=== PATIENT | male | born 1970 | race African-American/Black ===

== ENCOUNTER 2023-05-05 17:40 | Inpatient (IN) | payer BC, SELFPAY ==
[2023-05-05] MEDS ORDERED: MAGNESIUM SULFATE 1 gm IVPB 1 GM/100 ML BAG IV ONE (18:00)
[2023-05-05] MEDS ORDERED: NA CHLORIDE 0.9% 1,000 ML ONE (18:00)
[2023-05-05] MEDS ORDERED: Ringers Lactate 1,000 ML IV ONE (18:01)
[2023-05-05 18:03] LABS: Absolute Lymphocytes (CBC) 1.9 K/uL (0.7-4.9); Lymphocytes % 18.9 % (15.3-44.8); MCV 88.6 fL (80-100); MPV 8.6 fL (7.6-11.3); RBC Red Blood Cell Count 5.42 M/uL (4.33-5.43)
[2023-05-05 18:16] LABS: Potassium 3.4 mEq/L (3.5-5.1)
--- NOTE | 2023-05-05 18:52 | ER ---
Nurse's Notes [facility] Name: Gina Lockhart Age: 52 yrs Sex: Male : 1970 Arrival Date: 05/05/2023 Time: 17:40 Bed 20 Private MD: Diagnosis: Acute kidney failure, unspecified;Dehydration;Cramp and spasm Presentation: 05/05 17:44 Chief complaint: Patient states: "I was out working in the heat and my body started mb9 locking up and having spasms. This happened before and they gave me fluids/vitamin shot and got me better. I get really SOB when the spasms occur". Coronavirus screen: Vaccine status: Patient reports receiving the 2nd dose of the covid vaccine. Ebola Screen: No symptoms or risks identified at this time. Initial Sepsis Screen: Does the patient meet any 2 criteria? No. Patient's initial sepsis screen is negative. Does the patient have a suspected source of infection? No. Patient's initial sepsis screen is negative. Risk Assessment: Do you want to hurt yourself or someone else? Patient reports no desire to harm self or others. Onset of symptoms was May 05, 2023. 17:44 Method Of Arrival: Wheelchair mb9 17:44 Acuity: JESSI 3 mb9 Triage Assessment: 17:46 General: Appears uncomfortable, Behavior is cooperative. Pain: Denies pain. Neuro: mb9 Gallegos Agitation-Sedation Scale (RASS): 0 - Alert and Calm Level of Consciousness is awake, alert, obeys commands, Oriented to person, place, time, situation, Appropriate for age. Cardiovascular: Heart tones S1 S2 present. Respiratory: Reports shortness of breath Airway is patent Respiratory effort is even, unlabored, Respiratory pattern is regular, symmetrical. Respiratory: Breath sounds are clear bilaterally. GI: Abdomen is round non-distended, Bowel sounds present X 4 quads. Abd is soft and non tender X 4 quads. Derm: Skin is intact, Skin is clammy, Skin is normal, Skin temperature is cool. Musculoskeletal: Range of motion: intact in all extremities, bilateral upper extremities locking up and having spasms. Historical: - Allergies: 17:45 No Known Allergies; mb9 - Home Meds: 17:45 None [Active]; mb9 - PMHx: 17:45 Acute kidney failure; mb9 - PSHx: 17:45 None; mb9 - Immunization history:: Adult Immunizations up to date. - Social history:: Smoking status: Patient denies any tobacco usage or history of. - Family history:: not pertinent. - Hospitalizations: : No recent hospitalization is reported. Screenin:[address] [facility] ED Fall Risk Assessment (Adult) History of falling in the last 3 months, mb9 including since admission No falls in past 3 months (0 pts) Confusion or Disorientation No (0 pts) Intoxicated or Sedated No (0 pts) Impaired Gait No (0 pts) Mobility Assist Device Used No (0 pt) Altered Elimination No (0 pt) Score/Fall Risk Level 0 - 2 = Low Risk Oriented to surroundings, Maintained a safe environment, Educated pt \\T\\ family on fall prevention, incl call for assistance when getting out of bed. Abuse screen: Denies threats or abuse. Nutritional screening: No deficits noted. Tuberculosis screening: No symptoms or risk factors identified. Assessment: 18:50 Reassessment: No changes from previously documented assessment. Patient and/or family mb9 updated on plan of care and expected duration. Pain level reassessed. Patient is alert, oriented x 3, equal unlabored respirations, skin warm/dry/pink. 20:00 Reassessment: Patient and/or family updated on plan of care and expected duration. Pain mb9 level reassessed. Patient is alert, oriented x 3, equal unlabored respirations, skin warm/dry/pink. Patient states feeling better. Patient states symptoms have improved. 21:00 Reassessment: No changes from previously documented assessment. Patient and/or family mb9 updated on plan of care and expected duration. Pain level reassessed. Patient is alert, oriented x 3, equal unlabored respirations, skin warm/dry/pink. 22:00 Reassessment: No changes from previously documented assessment. Patient and/or family mb9 updated on plan of care and expected duration. Pain level reassessed. Patient is alert, oriented x 3, equal unlabored respirations, skin warm/dry/pink. 22:06 Reassessment: attempted to call report to admitting nurse. mb9 Vital Signs: 17:44 BP 118 / 77; Pulse 84; Resp 18; Temp 98.2; Pulse Ox 100% on R/A; Weight 102.06 kg; mb9 Height 5 ft. 11 in. ; Pain 0/10; 18:50 BP 118 / 77; Pulse 87; Resp 18; Pulse Ox 100% on R/A; mb9 20:45 BP 112 / 75; Pulse 70; Resp 18; Pulse Ox 100% on R/A; mb9 22:07 BP 115 / 70; Pulse 73; Resp 16; Pulse Ox 99% on R/A; Pain 0/10; mb9 17:44 Body Mass Index 31.38 (102.06 kg, 180.34 cm) mb9 17:44 Pain Scale: Adult mb9 22:07 Pain Scale: Adult mb9 ED Course: 17:40 Patient arrived in ED. rn 17:41 Gavin Ansari MD is Attending Physician. rn 17:44 Ina Johnson RN is Primary Nurse. mb9 17:44 Arm band placed on. mb9 17:45 Triage completed. mb9 17:47 Placed in gown. Bed in low position. Call light in reach. Side rails up X 1. Client mb9 placed on continuous cardiac and pulse oximetry monitoring. NIBP monitoring applied. surveillance monitor on. 17:57 CK Sent. mb9 17:57 Basic Metabolic Panel Sent. mb9 17:57 CBC with Diff Sent. mb9 18:10 EKG done, by ED staff. aw1 18:51 Lg Isbell MD is Hospitalizing Provider. rn 18:51 No provider procedures requiring assistance completed. Patient admitted, IV remains in mb9 place. Administered Medications: 17:57 Drug: NS 0.9% IV 1000 ml Route: IV; Rate: 1000 ml; Site: right antecubital; mb9 22:10 Follow up: Response: No adverse reaction; IV Status: Completed infusion mb9 17:57 Drug: Magnesium Sulfate IVPB 1 grams Route: IVPB; Infused Over: 1 hrs; Site: right mb9 antecubital; 20:30 Follow up: Response: No adverse reaction; IV Status: Completed infusion mb9 17:57 Drug: Lactated Ringers Solution IV 1000 ml Route: IV; Rate: 250 ml/hr; Site: right mb9 antecubital; 22:10 Follow up: Response: No adverse reaction; IV Status: Completed infusion mb9 Medication: 18:51 VIS not applicable for this client. mb9 Outcome: 18:51 Decision to Hospitalize by Provider. rn 22:22 Admitted to Med/surg accompanied by tech, via wheelchair, room 220, with chart, Report mb9 called to DARYN Rothman 22:22 Condition: stable 22:45 Patient left the ED. mb9 Signatures: Gavin Ansari MD MD rn Breneman, Mary Beth, RN RN [email or web address] Trudy Wyatt
--- NOTE | 2023-05-05 18:52 | EDPHYS ---
Physician Documentation [facility] Name: Gina Lockhart Age: 52 yrs Sex: Male : 1970 Arrival Date: 05/05/2023 Time: 17:40 Bed 20 Private MD: ED Physician Gavin Ansari HPI: 05/05 17:44 This 52 yrs old Male presents to ER via Unassigned with complaints of cramps, muscle rn spasm. 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 REports has happened once before, "given electrolyte shot and got better last time". NO vomiting. Reports thinks was drinking enough water. . Onset: The symptoms/episode began/occurred just prior to arrival. Severity of symptoms: At their worst the symptoms were moderate in the emergency department the symptoms are unchanged. The patient has experienced a previous episode. The patient has not recently seen a physician. Historical: - Allergies: 17:45 No Known Allergies; mb9 - Home Meds: 17:45 None [Active]; mb9 - PMHx: 17:45 Acute kidney failure; mb9 - PSHx: 17:45 None; mb9 - Immunization history:: Adult Immunizations up to date. - Social history:: Smoking status: Patient denies any tobacco usage or history of. - Family history:: not pertinent. - Hospitalizations: : No recent hospitalization is reported. ROS: 17:44 Constitutional: Negative for fever, chills, and weight loss, Cardiovascular: Negative rn for chest pain, palpitations, and edema, Respiratory: Negative for shortness of breath, cough, wheezing, and pleuritic chest pain, Abdomen/GI: Negative for abdominal pain, nausea, vomiting, diarrhea, and constipation, Back: Negative for injury and pain, MS/Extremity: Negative for injury and deformity, Skin: Negative for injury, rash, and discoloration, Neuro: Negative for headache, weakness, numbness, tingling, and seizure. Exam: 17:44 Constitutional: This is a well developed, well nourished patient who is awake, alert, rn and in no acute distress. Head/Face: Normocephalic, atraumatic. ENT: dry MM Cardiovascular: Regular rate and rhythm. No pulse deficits. Respiratory: No increased work of breathing, no retractions or nasal flaring. Abdomen/GI: Soft, non-tender Skin: Warm, dry MS/ Extremity: Pulses equal, no cyanosis Neuro: Awake and alert, GCS 15, oriented to person, place, time, and situation. Cranial nerves II-XII grossly intact. Motor strength 5/5 in all extremities. Sensory grossly intact. 18:55 ECG was reviewed by the Attending Physician. rn Vital Signs: 17:44 BP 118 / 77; Pulse 84; Resp 18; Temp 98.2; Pulse Ox 100% on R/A; Weight 102.06 kg; mb9 Height 5 ft. 11 in. ; Pain 0/10; 18:50 BP 118 / 77; Pulse 87; Resp 18; Pulse Ox 100% on R/A; mb9 20:45 BP 112 / 75; Pulse 70; Resp 18; Pulse Ox 100% on R/A; mb9 22:07 BP 115 / 70; Pulse 73; Resp 16; Pulse Ox 99% on R/A; Pain 0/10; mb9 17:44 Body Mass Index 31.38 (102.06 kg, 180.34 cm) mb9 17:44 Pain Scale: Adult mb9 22:07 Pain Scale: Adult mb9 MDM: 17:41 Patient medically screened. rn 18:50 Differential Diagnosis dehydration, rhabdomyolysis, acute kidney injury, electrolyte rn disturbance. Data reviewed: vital signs, nurses notes, lab test result(s), and as a result, I will admit patient. Consideration of Admission/Observation Patient was admitted/placed on observation. Escalation of care including admission/observation considered. Counseling: I had a detailed discussion with the patient and/or guardian regarding: the historical points, exam findings, and any diagnostic results supporting the discharge/admit diagnosis, lab results, the need for further work-up and treatment in the hospital. Response to treatment: the patient's symptoms have mildly improved after treatment, and as a result, I will admit patient. 05/05 17:41 Order name: CBC with Diff; Complete Time: 18:20 rn 05/05 17:41 Order name: Basic Metabolic Panel; Complete Time: 18:20 rn 05/05 17:41 Order name: CK; Complete Time: 18:20 rn 05/05 20:24 Order name: Urinalysis w/ reflexes EDMS 05/05 17:41 Order name: EKG; Complete Time: 17:42 rn 05/05 20:24 Order name: Regular EDMS 05/05 17:41 Order name: IV Start; Complete Time: 17:47 rn 05/05 17:41 Order name: EKG - Nurse/Tech; Complete Time: 18:08 rn EC:55 Rate is 78 beats/min. Rhythm is regular. QRS [place] is Normal. [place] interval is normal. QRS rn interval is normal. QT interval is normal. No Q waves. T waves are Normal. No ST changes noted. Clinical impression: Normal ECG. Interpreted by me. Reviewed by me. Administered Medications: 17:57 Drug: NS 0.9% IV 1000 ml Route: IV; Rate: 1000 ml; Site: right antecubital; mb9 22:10 Follow up: Response: No adverse reaction; IV Status: Completed infusion mb9 17:57 Drug: Magnesium Sulfate IVPB 1 grams Route: IVPB; Infused Over: 1 hrs; Site: right mb9 antecubital; 20:30 Follow up: Response: No adverse reaction; IV Status: Completed infusion mb9 17:57 Drug: Lactated Ringers Solution IV 1000 ml Route: IV; Rate: 250 ml/hr; Site: right mb9 antecubital; 22:10 Follow up: Response: No adverse reaction; IV Status: Completed infusion mb9 Disposition Summary: 05/05/23 18:51 Hospitalization Ordered Hospitalization Status: Inpatient Admission rn Provider: Lg Isbell rn Location: Telemetry/[facility] [place] [place] (Inpatient) rn Condition: Stable rn Problem: new rn Symptoms: have improved rn Bed/Room Type: Standard rn Room Assignment: 220(05/05/23 21:51) mw Diagnosis - Acute kidney failure, unspecified rn - Dehydration rn - Cramp and spasm rn Forms: - Medication Reconciliation Form rn - SBAR form rn Signatures: Dispatcher KashmirHo VINNIEND Jina Oneill RN RN mw Nieto, Roman, MD MD rn Breneman, Ina Corrigan, RN RN mb9 Corrections: (The following items were deleted from the chart) 21:51 18:51 rn mw
[2023-05-05] MEDS ORDERED: ONDANSETRON 4 MG/2 ML VIAL IV PRN (20:20)
[2023-05-05] MEDS ORDERED: ACETAMINOPHEN 500 MG TAB PO PRN (20:20)
--- NOTE | 2023-05-05 20:23 | P.HP ---
Certification for Inpatient Patient admitted to: Inpatient Patient will require the following post-hospital care: None Practitioner: I am a practitioner with admitting privileges, knowledge of patient current condition, hospital course, and medical plan of care. Services: Services provided to patient in accordance with Admission requirements found in Title 42 Section 412.3 of the Code of Federal Regulations Patient History Date of Service: 05/06/23 Reason for admission: Acute kidney injury, heat exhaustion. History of Present Illness: 52-year-old male patient who has no significant medical history who was evaluated for episode of cramps and general weakness. He reports working out in the element with no significant intake of fluid and he began to have episode of severe cramps in the hands and legs and began to feel very weak. He denies chest pain, fever, chills, rigor, nausea, vomiting. He came to the ED because he was significantly affected by the symptoms. In the ED laboratory results revealed elevated creatinine of 3.5 mild hyponatremia and mild hypokalemia. He also had mild hypercalcemia and overall thought process was that patient was volume depleted from excessive insensible losses secondary to exposure to high heat environment. He was admitted for inpatient care after IV fluid was started. Allergies No Known Allergies Allergy (Verified 05/05/23 23:02) Home Medications: NK [No Home Meds] 05/06/23 Physical Examination - Physical Exam General: Alert, Oriented x3 HEENT: Atraumatic, Normocephalic Neck: Supple Respiratory: Clear to auscultation bilaterally Cardiovascular: Regular rate/rhythm, Normal S1 S2 Gastrointestinal: Soft and benign Musculoskeletal: No swelling Integumentary: No breakdown Neurological: Normal speech, Normal strength at 5/5 x4 extr - Studies Laboratory Data (last 24 hrs) 05/05/23 17:48: Sodium 133 L, Potassium 3.4 L, BUN 19 H, Creatinine 3.35 H, Glucose 126 H 05/05/23 17:48: WBC 9.90, Hgb 15.6, Hct 48.0, Plt Count 294 Assessment and Plan - Plan Heat exhaustion: Patient has significant symptoms and laboratory parameters met. IV fluid administered and patient has improvement in symptomatology. We will continue to monitor symptoms. Acute kidney injury: Creatinine was elevated at 3.5. Episode is deemed due to ischemic ATN from volume loss secondary to insensible loss from exposure to the elements. We will hydrate and follow-up closely. We will continue to avoid exposure to nephrotoxins Hyponatremia: Mild hyponatremia with sodium of 133. IV fluids started. We will follow trends. Prophylaxis: SCDs for DVT prophylaxis CODE STATUS: Full code Disposition: Patient will be discharged once he is deemed clinically stable and heat exertion is deemed resolved. Discharge Plan: Home Plan to discharge in: 24 Hours - Advance Directives Does patient have a Living Will: No Does patient have a Durable POA for Healthcare: No
[2023-05-05 23:02] VITALS: BMI 28.4
[2023-05-05] MEDS: NA CHLORIDE 0.9% 1,000 ML IV SCH (23:28)
[2023-05-06 03:26] LABS: Magnesium 2.6 mg/dL (1.6-2.4); Phosphorus 2.9 mg/dL (2.5-4.9); Potassium 4.1 mEq/L (3.5-5.1)
[2023-05-06] MEDS: NA CHLORIDE 0.9% 1,000 ML IV SCH ×3 (03:40→12:43)
[2023-05-06 04:50] VITALS: O2SAT 95
[2023-05-06 05:19] LABS: Urine Bacteria None Seen /HPF (<20); Urine Bilirubin NEGATIVE (Negative); Urine Blood Trace (Negative); Urine Clarity Clear (Clear); Urine Color Light-Yellow (Yellow); Urine Glucose NEGATIVE (Negative); Urine Protein NEGATIVE (Negative); Urine RBC <5 /HPF (None Seen); Urine Urobilinogen Normal (Normal); Urine pH 5.5 (5.0-7.0)
--- NOTE | 2023-05-06 08:48 | EKG ---
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
[2023-05-06 11:41] VITALS: TEMP 97.9
--- NOTE | 2023-05-06 15:06 | P.CNS ---
Date of Consult: 05/06/23 Reason for Consult: SHEA Requesting Physician: chucho rachel Chief Complaint: Acute kidney injury, heat exhaustion. History of Present Illness: 52M who has no known medical history who p/w cramps and generalized weakness, admitted for volume depletion from heat exhaustion, referred to Nephrology for SHEA. He denies hx of kidney dse, urolithiasis, chronic nsaid use, dysuria, uti, or flnak pain. Serum creatinine elevated at 3.5 on admisison. He also had hyponatremia & hypokalemia. He received IV fluids & electrolyte repletion. Symtoms now resolved. Scr improved to 1.8. Allergies No Known Allergies Allergy (Verified 05/05/23 23:02) Home Medications: NK [No Home Meds] 05/06/23 - Past Medical/Surgical History Diabetic: No -: right knuckle sx - Social History Alcohol use: No Caffeine use: No Place of Residence: Home Review of Systems General: Weakness Eyes: Unremarkable ENT: Unremarkable Respiratory: Unremarkable Cardiovascular: Unremarkable Gastrointestinal: Unremarkable Genitourinary: Unremarkable Musculoskeletal: Unremarkable (muscle cramps, generalized weakness) Integumentary: Unremarkable Neurological: Unremarkable Lymphatics: Unremarkable Physical Examination Temp Pulse Resp BP Pulse Ox 97.9 F 67 17 130/65 98 05/06/23 11:40 05/06/23 11:40 05/06/23 11:40 05/06/23 11:40 05/06/23 11:40 General: In no apparent distress HEENT: Atraumatic, Normocephalic Neck: Supple, JVD not distended Respiratory: Clear to auscultation bilaterally Cardiovascular: No rubs, No murmurs Gastrointestinal: Soft and benign, No guarding Musculoskeletal: No clubbing, No swelling Neurological: Normal speech, Normal tone Lymphatics: No axilla or inguinal lymphadenopathy Urinary: Other (No bladder distention) External genitalia: Deferred Rectal: Deferred Laboratory Data (last 24 hrs) 05/05/23 17:48: Sodium 133 L, Potassium 3.4 L, BUN 19 H, Creatinine 3.35 H, Glucose 126 H 05/05/23 17:48: WBC 9.90, Hgb 15.6, Hct 48.0, Plt Count 294 Conclusions/Impression: # SHEA vs SHEA on CKD 2/2 prerenal state from heat exhaustion SCr 3.5 on adm, improved to 1.8 today Baseline renal fxn is unknown Received IV fluids Urinalysis with no proteinuria and no hematuria no pyuria; with trace blood liberal by mouth fluid intake > 2L/d # Heat exhaustion Resolved Received IV fluids # Hyponatremia Resolved, monitor # Hypokalemia Resolved, monitor Received KCl repletion # Hypermagnesemia Mild, monitor # Dispo Ok to dc today F/u in renal clinic in 2 wks w/ repeat renal panel & serum Mg
[2023-05-06 16:13] VITALS: BP 142/63
--- NOTE | 2023-05-06 16:28 | P.DS ---
Admission Date: 05/05/23 Discharge Date: 05/06/23 Disposition: ROUTINE DISCHARGE Discharge Condition: FAIR Reason for Admission: Acute kidney injury, heat exhaustion. - Problems (1) Heat exhaustion Current Visit: Yes Status: Acute (2) Acute renal failure Current Visit: Yes Status: Acute Brief History of Present Illness: 52-year-old male patient who has no significant medical history who was evaluated for episode of cramps and general weakness. He reports working out in the heat with no significant intake of fluid and he began to have episode of severe cramps in the hands and legs and began to feel very weak. He denies chest pain, fever, chills, rigor, nausea, vomiting. He came to the ED because he was significantly affected by the symptoms. In the ED laboratory results revealed elevated creatinine of 3.5 mild hyponatremia and mild hypokalemia. He also had mild hypercalcemia suggesting volume depletion.he is on exertion suspected and patient was hospitalized for further management. Hospital Course: Patient admitted to the medical floor and aggressively hydrated with IV fluid. Patient renal function significantly improved. Patient was asymptomatic, he tolerated diet and has been ambulating. Was seen and evaluated by nephrology Dr. Oliveros who deemed patient stable for discharge. Patient to follow-up with him in the office within the next couple of weeks for renal function follow-up. Vital Signs/Physical Exam: Temp Pulse Resp BP Pulse Ox 97.9 F 69 17 142/63 H 98 05/06/23 16:00 05/06/23 16:00 05/06/23 16:00 05/06/23 16:00 05/06/23 16:00 General: Alert, In no apparent distress, Oriented x3 HEENT: Mucous membr. moist/pink Neck: Supple, JVD not distended Respiratory: Clear to auscultation bilaterally, Normal air movement Cardiovascular: No edema, Regular rate/rhythm, Normal S1 S2 Gastrointestinal: Normal bowel sounds, Soft and benign Musculoskeletal: No swelling Integumentary: No rashes, No cyanosis Neurological: Normal strength at 5/5 x4 extr Laboratory Data at Discharge: WBC 9.90 thou/uL (4.3-10.9) 05/05/23 17:48 Hgb 15.6 g/dL (13.6-17.9) 05/05/23 17:48 Hct 48.0 % (39.6-49.0) 05/05/23 17:48 Plt Count 294 thou/uL (152-406) 05/05/23 17:48 Sodium 142 mEq/L (136-145) D 05/06/23 02:20 Potassium 4.1 mEq/L (3.5-5.1) D 05/06/23 02:20 BUN 17 mg/dL (7-18) 05/06/23 02:20 Creatinine 1.81 mg/dL (0.70-1.30) H 05/06/23 02:20 Glucose 132 mg/dL (74-106) H 05/06/23 02:20 Phosphorus 2.9 mg/dL (2.5-4.9) 05/06/23 02:20 Magnesium 2.6 mg/dL (1.6-2.4) H 05/06/23 02:20 Home Medications: NK [No Home Meds] 05/06/23 Diet: AHA Activity: Ad bogdan Followup: Nora Oliveros [ACTIVE - CAN ADMIT] - (call for an apt for in two weeks. Tell them you want your apointment for [facility].) NONE,NONE [Primary Care Provider] - Time spent managing pt's care (in minutes): 33
== END 2023-05-06 17:52 | disposition home or self-care (01) | DRG 683 ==
LOC: ER 17:40 → ERHOLD 22:15 → 2ND 22:24
PROVIDERS: ADMIT Internal Medicine Nephrology; ATTEND Internal Medicine
DX: N17.9 Acute kidney failure, unspecified (principal); E87.1 Hypo-osmolality and hyponatremia; E86.0 Dehydration; E87.6 Hypokalemia; E83.52 Hypercalcemia; E86.9 Volume depletion, unspecified; N18.9 Chronic kidney disease, unspecified; E83.41 Hypermagnesemia; X30.XXXA Exposure to excessive natural heat, initial encounter
CPT/HCPCS: 36415; 80048; 81001; 82550; 83735; 84100; 85025; 93005; 96361; 96365; 96366; 99285; J3475; J7030; J7120